=== PATIENT | male | born 1945 | race Caucasian/White ===

== ENCOUNTER 2017-09-06 15:42 | Inpatient (IN) ==
[2017-09-06] MEDS ORDERED: NITROGLYCERIN 2% OINT 1 INCH/GM PACK TOP STA (16:15)
[2017-09-06] MEDS ORDERED: ASPIRIN 325 MG TABLET PO STA (16:15)
[2017-09-06] MEDS ORDERED: ASPIRIN EC 325 MG TABLET PO ONE (16:46)
[2017-09-06] MEDS ORDERED: NITROGLYCERIN 2% OINT 1 INCH/GM PACK TOP ONE (16:46)
[2017-09-06] MEDS ORDERED: ASPIRIN 325 MG TABLET ONE (16:53)
[2017-09-06 16:58] LABS: Basophils % 0.3 % (0.0-0.8); Eosinophils % 0.4 % (0.00-10.9); Hematocrit 40.8 VOL% (42.0-52.0); Hemoglobin 14.7 GM/DL (14.0-18.0); Immature Granulocytes % 0.3 %; Immature Granulocytes Absolute 0.02 #; Lymphocytes % 14.9 % (21.2-54.2); Mean Corpuscular Hemoglobin 31 PG (27-34); Mean Platelet Volume 10.7 FL (9.6-12.0); Monocytes # 0.6 10*3/uL (0.11-0.8); Monocytes % 8.2 % (1.7-12.7); Neutrophils # 5.1 10*3/uL (1.4-7.4); Neutrophils % 75.9 % (38.7-73.9); Platelet Count 192 T/CUMM (130-400); Red Blood Count 4.69 MC/CUMM (3.8-5.5); Red Cell Distribution Width 12.3 % (9.3-17.3); White Blood Count 6.7 T/CUMM (4-12)
[2017-09-06 17:06] LABS: PT Patient Result 10.6 SECS; Partial Thromboplastin Time 25.4 SECS (0-40)
[2017-09-06 17:34] LABS: Alanine Aminotransferase 20 U/L (16-61); Albumin 4.3 G/DL (3.4-5.0); Alkaline Phosphatase 58 U/L (45-117); Aspartate Amino Transferase 16 U/L (0-37); Blood Urea Nitrogen 16 MG/DL (7-18); Calcium 9.3 MG/DL (8.5-10.1); Glucose 97 MG/DL (74-106); Osmolality,Calculated 279.4 MOS/KG (273-304); Potassium 3.8 MMOL/L (3.5-5.1); Sodium 140 MMOL/L (136-145); Total Protein 7.4 G/DL (6.4-8.3); Troponin I Only 0.135 NG/ML (0.00-0.045)
[2017-09-06] MEDS ORDERED: ONDANSETRON 4 MG/2 ML VIAL IV PRN (20:25)
[2017-09-06] MEDS ORDERED: hydrALAZINE 20 MG/1 ML VIAL IV PRN (20:25)
[2017-09-06] MEDS: ENOXAPARIN 80 MG/0.8 ML SYRINGE SUBCUT SCH (21:28)
[2017-09-06] MEDS: SODIUM CHLORIDE 0.9% 1,000 ML IV SCH (21:28)
[2017-09-06 22:35] LABS: Troponin I Only 0.135 NG/ML (0.00-0.045)
[2017-09-07] MEDS: NITROGLYCERIN 2% OINT 1 INCH/GM PACK TOP SCH ×3 (00:26→15:18)
[2017-09-07 05:58] LABS: Troponin I Only 0.158 NG/ML (0.00-0.045)
[2017-09-07] MEDS ORDERED: POTASSIUM CHLORIDE RIDER 10 MEQ in PREMIX 1 EACH IV PRN (08:07)
[2017-09-07] MEDS ORDERED: MAGNESIUM SULF RIDER 2 GM in PREMIX 1 EACH IV PRN (08:07)
[2017-09-07] MEDS ORDERED: diphenhydrAMINE CAP 25 MG CAPSULE PO ONE (08:24)
[2017-09-07] MEDS ORDERED: DIAZEPAM 5 MG TABLET PO ONE (08:24)
[2017-09-07] MEDS: cloNIDine 0.1 MG TABLET PO SCH ×3 (10:21→20:41)
[2017-09-07] MEDS: DOXAZOSIN 1 MG TABLET PO SCH (10:21)
[2017-09-07] MEDS: ASPIRIN EC 81 MG TABLET PO SCH (10:21)
[2017-09-07] MEDS: ENOXAPARIN 80 MG/0.8 ML SYRINGE SUBCUT SCH (10:22)
[2017-09-07] MEDS: TICAGRELOR 90 MG TABLET PO SCH ×2 (10:22→20:41)
[2017-09-07] MEDS: DEXTROSE 5% NACL 0.45% 1,000 ML IV SCH (10:44)
[2017-09-07] MEDS ORDERED: LIDOCAINE 2%/EPI 20 ML VIAL ONE (13:39)
[2017-09-07] MEDS ORDERED: HEPARIN/NACL 0.9% 2 UNITS/ML 2,000 ML IV ONE (13:39)
[2017-09-07] MEDS ORDERED: fentaNYL 100 MCG/2 ML VIAL ONE (14:10)
[2017-09-07] MEDS ORDERED: MIDAZOLAM 2 MG/2 ML VIAL ONE (14:10)
[2017-09-07] MEDS ORDERED: TIROFIBAN 5,000 MCG/100 ML PREMIX IV ONE (14:40)
[2017-09-07] MEDS ORDERED: HEPARIN 5,000 UNIT/1 ML VIAL ONE ×2 (14:46→15:05)
[2017-09-07] MEDS ORDERED: TICAGRELOR 90 MG TABLET ONE (15:00)
[2017-09-07] MEDS: SODIUM CHLORIDE 0.9% 1,000 ML IV SCH (15:19)
[2017-09-07] MEDS ORDERED: TIROFIBAN 5,000 MCG/100 ML PREMIX IV SCH (15:30)
[2017-09-07] MEDS ORDERED: cloNIDine 0.1 MG TABLET PO PRN (15:42)
[2017-09-07] MEDS: HYDROmorphone 2 MG/1 ML VIAL IV PRN ×2 (17:08→21:18)
[2017-09-07] MEDS ORDERED: AMITRIPTYLINE 10 MG TABLET PO SCH (21:00)
[2017-09-08] MEDS: DEXTROSE 5% NACL 0.45% 1,000 ML IV SCH (01:33)
[2017-09-08 08:05] LABS: Basophils % 0.2 % (0.0-0.8); Eosinophils # 0.1 10*3/uL (0.0-0.87); Eosinophils % 0.6 % (0.00-10.9); Hematocrit 40.4 VOL% (42.0-52.0); Immature Granulocytes % 0.4 %; Immature Granulocytes Absolute 0.04 #; Lymphocytes # 1.2 10*3/uL (1.4-4.0); Lymphocytes % 12.1 % (21.2-54.2); Mean Corpuscular HGB Conc 34.7 GM/DL (32-36); Mean Corpuscular Hemoglobin 31 PG (27-34); Mean Platelet Volume 10.7 FL (9.6-12.0); Monocytes % 10.1 % (1.7-12.7); Neutrophils # 7.8 10*3/uL (1.4-7.4); Neutrophils % 76.6 % (38.7-73.9); Platelet Count 174 T/CUMM (130-400); Red Blood Count 4.54 MC/CUMM (3.8-5.5); Red Cell Distribution Width 12.3 % (9.3-17.3); White Blood Count 10.1 T/CUMM (4-12)
[2017-09-08] MEDS: TICAGRELOR 90 MG TABLET PO SCH (08:08)
[2017-09-08] MEDS: ASPIRIN EC 81 MG TABLET PO SCH (08:08)
[2017-09-08] MEDS: DOXAZOSIN 1 MG TABLET PO SCH (08:08)
[2017-09-08] MEDS: cloNIDine 0.1 MG TABLET PO SCH (08:08)
[2017-09-08 08:35] LABS: Calcium 8.6 MG/DL (8.5-10.1); Osmolality,Calculated 275.5 MOS/KG (273-304); Potassium 3.7 MMOL/L (3.5-5.1)
[2017-09-08 12:18] VITALS: BP 197/93
== END 2017-09-08 12:30 | disposition home or self-care (01) | DRG 247 ==
LOC: N.ED 15:42 → N.EDINP 18:52 → N.TELES 19:56
PROVIDERS: ADMIT Internal Medicine Cardiovascular Disease; ATTEND Internal Medicine Cardiovascular Disease
PROC: CLCCHCL (ICD-10-PCS; 2017-09-07 15:15)

== ENCOUNTER 2021-12-12 16:11 | Inpatient (IN) ==
[2021-12-12] MEDS ORDERED: LACTULOSE 20 GM/30 ML UDCUP PO PRN (16:42)
[2021-12-12] MEDS ORDERED: MORPHINE 2 MG/1 ML SYRINGE IV PRN (16:42)
[2021-12-12] MEDS ORDERED: ONDANSETRON 4 MG/2 ML VIAL IV PRN (16:42)
[2021-12-12] MEDS ORDERED: CALCIUM CARBONATE CHEW 500 MG TABLET PO PRN (16:42)
[2021-12-12] MEDS ORDERED: SIMETHICONE CHEW 125 MG TABLET PO PRN (16:42)
[2021-12-12] MEDS ORDERED: ACETAMINOPHEN 325 MG TABLET PO PRN (16:42)
[2021-12-12] MEDS ORDERED: ALUMINUM/MAGNES/SIMETH MAX STR 30 ML UDCUP PO PRN (16:42)
[2021-12-12] MEDS ORDERED: BISACODYL 5 MG TABLET PO PRN (16:42)
[2021-12-12] MEDS ORDERED: ZALEPLON 5 MG CAPSULE PO PRN (16:42)
[2021-12-12] MEDS ORDERED: hydrALAZINE 20 MG/1 ML VIAL IV PRN (16:42)
[2021-12-12] MEDS ORDERED: ENOXAPARIN 40 MG/0.4 ML SYRINGE SUBCUT SCH (17:00)
[2021-12-12 17:55] LABS: Basophils % 0.5 % (0.0-0.8); Eosinophils # 0.1 10*3/uL (0.0-0.87); Eosinophils % 1.5 % (0.00-10.9); Hematocrit 44.5 VOL% (42.0-52.0); Hemoglobin 15.2 GM/DL (14.0-18.0); Immature Granulocytes % 0.1 %; Immature Granulocytes Absolute 0.01 #; Lymphocytes # 1.5 10*3/uL (1.4-4.0); Lymphocytes % 19.5 % (21.2-54.2); Mean Corpuscular HGB Conc 34.2 GM/DL (32-36); Mean Corpuscular Volume 90.4 FL (87-102); Monocytes # 0.9 10*3/uL (0.11-0.8); Monocytes % 12.6 % (1.7-12.7); Neutrophils % 65.8 % (38.7-73.9); Platelet Count 207 T/CUMM (130-400); Red Blood Count 4.92 MC/CUMM (3.8-5.5); Red Cell Distribution Width 12.4 % (9.3-17.3); White Blood Count 7.5 T/CUMM (4-12)
[2021-12-12] MEDS ORDERED: ENOXAPARIN 80 MG/0.8 ML SYRINGE SUBCUT ONE (18:00)
[2021-12-12 18:24] LABS: Albumin 4.2 G/DL (3.4-5.0); Bilirubin,Total 0.5 MG/DL (0.20-1.00); Calcium 9.6 MG/DL (8.5-10.1); Osmolality,Calculated 278.5 MOS/KG (273-304); Potassium 4.3 MMOL/L (3.5-5.1); Total Protein 7.6 G/DL (6.4-8.2)
[2021-12-12] MEDS: QUEtiapine 25 MG TABLET PO SCH (21:10)
[2021-12-13 05:23] LABS: Basophils % 0.4 % (0.0-0.8); Eosinophils # 0.2 10*3/uL (0.0-0.87); Eosinophils % 2.5 % (0.00-10.9); Hematocrit 40.8 VOL% (42.0-52.0); Hemoglobin 13.9 GM/DL (14.0-18.0); Immature Granulocytes % 0.1 %; Immature Granulocytes Absolute 0.01 #; Lymphocytes # 1.8 10*3/uL (1.4-4.0); Lymphocytes % 23.7 % (21.2-54.2); Mean Corpuscular HGB Conc 34.1 GM/DL (32-36); Mean Corpuscular Volume 90.7 FL (87-102); Mean Platelet Volume 10.6 FL (9.6-12.0); Monocytes # 0.8 10*3/uL (0.11-0.8); Monocytes % 11.2 % (1.7-12.7); Neutrophils % 62.1 % (38.7-73.9); Platelet Count 166 T/CUMM (130-400); Red Cell Distribution Width 12.2 % (9.3-17.3); White Blood Count 7.5 T/CUMM (4-12)
[2021-12-13 05:52] LABS: Calcium 8.7 MG/DL (8.5-10.1); Osmolality,Calculated 279.4 MOS/KG (273-304); Potassium 3.8 MMOL/L (3.5-5.1); Risk Ratio 5.22; Thyroid Stimulating Hormone 3.46 uIU/ml (0.358-3.74); VLDL Cholesterol 23.6 MG/DL
[2021-12-13] MEDS ORDERED: SODIUM CHLORIDE 0.9% 1,000 ML IV SCH (06:00)
[2021-12-13] MEDS ORDERED: HEPARIN/NACL 0.9% 2 UNITS/ML 2,000 UNIT/1,000 ML BAG IV ONE (06:50)
[2021-12-13] MEDS ORDERED: diphenhydrAMINE CAP 25 MG CAPSULE PO ONE (07:00)
[2021-12-13] MEDS ORDERED: DIAZEPAM 5 MG TABLET PO ONE (07:00)
[2021-12-13] MEDS ORDERED: ASPIRIN EC 81 MG TABLET PO SCH (09:00)
[2021-12-13] MEDS ORDERED: fentaNYL 100 MCG/2 ML VIAL ONE (10:00)
[2021-12-13] MEDS ORDERED: MIDAZOLAM 2 MG/2 ML VIAL ONE ×2 (10:00→10:14)
[2021-12-13] MEDS ORDERED: hydrALAZINE 20 MG/1 ML VIAL ONE (10:16)
[2021-12-13] MEDS ORDERED: NITROGLYCERIN SL 0.4 MG TABLET SL PRN (11:03)
[2021-12-13] MEDS ORDERED: ASPIRIN EC 325 MG TABLET PO ONE (11:06)
[2021-12-13] MEDS: cloNIDine 0.1 MG TABLET PO SCH (12:26)
[2021-12-13] MEDS: GABAPENTIN 300 MG CAPSULE PO SCH (12:26)
[2021-12-13] MEDS: PANTOPRAZOLE 40 MG TABLET PO SCH (12:28)
[2021-12-13] MEDS: CHOLECALCIFEROL 5,000 UNIT TABLET PO SCH (12:29)
[2021-12-13] MEDS: hydrALAZINE 25 MG TABLET PO SCH ×2 (14:22→21:29)
[2021-12-13 16:28] LABS: Basophils % 0.3 % (0.0-0.8); Eosinophils # 0.1 10*3/uL (0.0-0.87); Eosinophils % 0.4 % (0.00-10.9); Hemoglobin 16.2 GM/DL (14.0-18.0); Immature Granulocytes % 0.4 %; Immature Granulocytes Absolute 0.05 #; Lymphocytes # 1.1 10*3/uL (1.4-4.0); Lymphocytes % 7.9 % (21.2-54.2); Mean Corpuscular HGB Conc 34.5 GM/DL (32-36); Mean Corpuscular Volume 89.7 FL (87-102); Mean Platelet Volume 10.6 FL (9.6-12.0); Monocytes # 1.2 10*3/uL (0.11-0.8); Monocytes % 9.1 % (1.7-12.7); Neutrophils % 81.9 % (38.7-73.9); Platelet Count 208 T/CUMM (130-400); Red Blood Count 5.24 MC/CUMM (3.8-5.5); Red Cell Distribution Width 12.4 % (9.3-17.3); White Blood Count 13.2 T/CUMM (4-12)
[2021-12-13] MEDS: QUEtiapine 25 MG TABLET PO SCH (21:29)
[2021-12-14 05:36] LABS: Basophils % 0.5 % (0.0-0.8); Eosinophils # 0.1 10*3/uL (0.0-0.87); Eosinophils % 1.6 % (0.00-10.9); Hematocrit 43.5 VOL% (42.0-52.0); Hemoglobin 14.5 GM/DL (14.0-18.0); Immature Granulocytes % 0.5 %; Immature Granulocytes Absolute 0.04 #; Lymphocytes # 1.3 10*3/uL (1.4-4.0); Lymphocytes % 15.1 % (21.2-54.2); Mean Corpuscular HGB Conc 33.3 GM/DL (32-36); Mean Corpuscular Volume 91.8 FL (87-102); Mean Platelet Volume 10.4 FL (9.6-12.0); Monocytes # 0.9 10*3/uL (0.11-0.8); Monocytes % 10.4 % (1.7-12.7); Neutrophils % 71.9 % (38.7-73.9); Platelet Count 187 T/CUMM (130-400); Red Blood Count 4.74 MC/CUMM (3.8-5.5); Red Cell Distribution Width 12.5 % (9.3-17.3); White Blood Count 8.8 T/CUMM (4-12)
[2021-12-14 05:51] LABS: Calcium 8.7 MG/DL (8.5-10.1); Osmolality,Calculated 278.5 MOS/KG (273-304); Potassium 3.8 MMOL/L (3.5-5.1)
[2021-12-14 08:10] VITALS: BP 158/77
[2021-12-14] MEDS ORDERED: ASPIRIN 325 MG TABLET PO SCH (09:00)
[2021-12-14] MEDS: GABAPENTIN 300 MG CAPSULE PO SCH (09:13)
[2021-12-14] MEDS: hydrALAZINE 25 MG TABLET PO SCH (09:14)
[2021-12-14] MEDS: cloNIDine 0.1 MG TABLET PO SCH (09:14)
[2021-12-14] MEDS: PANTOPRAZOLE 40 MG TABLET PO SCH (09:14)
[2021-12-14] MEDS: CHOLECALCIFEROL 5,000 UNIT TABLET PO SCH (09:14)
[2021-12-14] MEDS ORDERED: ISOSORBIDE MONONITRATE 30 MG TABLET PO SCH (11:00)
== END 2021-12-14 13:51 | disposition home or self-care (01) | DRG 282 ==
LOC: INTOOBSV 17:35 → N.TELEN 17:35
PROVIDERS: ADMIT Internal Medicine Cardiovascular Disease; ATTEND Internal Medicine Cardiovascular Disease

== ENCOUNTER 2021-12-21 13:00 | Inpatient (IN) ==
[2021-12-21] MEDS ORDERED: NITROGLYCERIN SL 0.4 MG TABLET SL PRN (13:55)
[2021-12-21] MEDS ORDERED: GLUCAGON 1 MG VIAL IM PRN (13:55)
[2021-12-21] MEDS ORDERED: MORPHINE 2 MG/1 ML SYRINGE IV PRN (13:55)
[2021-12-21] MEDS ORDERED: CLORAZEPATE 3.75 MG TABLET PO PRN (13:55)
[2021-12-21] MEDS ORDERED: DEXTROSE 10% 250 ML BAG IV PRN (16:17)
[2021-12-21 16:41] LABS: Basophils # 0.1 10*3/uL (0.0-0.2); Basophils % 0.7 % (0.0-0.8); Eosinophils # 0.1 10*3/uL (0.0-0.87); Eosinophils % 1.8 % (0.00-10.9); Hematocrit 45.1 VOL% (42.0-52.0); Hemoglobin 15.5 GM/DL (14.0-18.0); Immature Granulocytes % 0.3 %; Immature Granulocytes Absolute 0.02 #; Lymphocytes # 1.5 10*3/uL (1.4-4.0); Lymphocytes % 21.1 % (21.2-54.2); Mean Corpuscular HGB Conc 34.4 GM/DL (32-36); Mean Corpuscular Volume 89.8 FL (87-102); Mean Platelet Volume 9.8 FL (9.6-12.0); Monocytes # 0.7 10*3/uL (0.11-0.8); Monocytes % 9.6 % (1.7-12.7); Neutrophils % 66.5 % (38.7-73.9); Platelet Count 260 T/CUMM (130-400); Red Blood Count 5.02 MC/CUMM (3.8-5.5); Red Cell Distribution Width 12.1 % (9.3-17.3); White Blood Count 7.2 T/CUMM (4-12)
[2021-12-21 16:58] LABS: Albumin 4.3 G/DL (3.4-5.0); Bilirubin,Total 0.4 MG/DL (0.20-1.00); Calcium 9.1 MG/DL (8.5-10.1); Osmolality,Calculated 278.5 MOS/KG (273-304); Potassium 4.1 MMOL/L (3.5-5.1); Total Protein 7.9 G/DL (6.4-8.2)
[2021-12-21] MEDS: SODIUM CHLORIDE 0.9% 1,000 ML IV SCH (17:15)
[2021-12-21] MEDS: CHLORHEXIDINE 4% SOLN 118 ML BOTTLE TOP SCH ×2 (17:15→21:00)
[2021-12-21 17:43] LABS: Arterial Base Excess iSTAT 1 MMOL/L (-2.5-2.5); Arterial Bicarbonate iSTAT 25.7 MMOL/L (20-26); Arterial O2 Saturation iSTAT 97 % (95-100); Arterial PCO2 iSTAT 40 MM HG (35-48); Arterial PO2 iSTAT 88 MM HG (80-95); Arterial Total CO2 iSTAT 27 MMO/L (23-27); Arterial pH iSTAT 7.416 (7.35-7.45)
[2021-12-21] MEDS: CHLORHEXIDINE 0.12% ORAL RINSE 60 ML BOTTLE SWISH/SPIT SCH (21:00)
[2021-12-22] MEDS ORDERED: VANCOMYCIN 1,000 MG VIAL ONE (04:17)
[2021-12-22] MEDS ORDERED: PAPAVERINE 60 MG/2 ML VIAL ONE (04:17)
[2021-12-22] MEDS ORDERED: VANCOMYCIN 500 MG VIAL ONE (04:17)
[2021-12-22] MEDS ORDERED: CEFUROXIME INJ 1,500 MG in SODIUM CHLORIDE 0.9% 100 ML IV ONE (05:00)
[2021-12-22] MEDS: CHLORHEXIDINE 4% SOLN 118 ML BOTTLE TOP SCH (05:15)
[2021-12-22] MEDS: SODIUM CHLORIDE 0.9% 1,000 ML IV SCH (05:25)
[2021-12-22] MEDS ORDERED: DIAZEPAM 5 MG TABLET PO ONE (05:30)
[2021-12-22] MEDS ORDERED: FAMOTIDINE 20 MG TABLET PO ONE (05:30)
[2021-12-22] MEDS ORDERED: MIDAZOLAM 10 MG/2 ML VIAL ONE ×4 (06:02→08:49)
[2021-12-22] MEDS ORDERED: SUFentanil 250 MCG/5 ML AMP ONE ×2 (06:02)
[2021-12-22] MEDS ORDERED: AMINOCAPROIC ACID 5,000 MG/20 ML VIAL ONE (06:03)
[2021-12-22] MEDS ORDERED: SEVOFLURANE 1 UNIT/15 MINUTE INH ONE ×2 (06:19→10:36)
[2021-12-22] MEDS ORDERED: MINERAL OIL/PETROLATUM OPH OINT 3.5 GM TUBE ONE ×2 (06:20→10:36)
[2021-12-22] MEDS ORDERED: NITROGLYCERIN DRIP 50 MG/250 ML BOTTLE IV ONE ×2 (06:25→14:29)
[2021-12-22] MEDS ORDERED: HEPARIN/NACL 0.9% 2 UNITS/ML 1,000 UNIT/500 ML BAG IV ONE (06:25)
[2021-12-22] MEDS ORDERED: PHENYLEPHRINE DRIP 20 MG/250 ML PREMIX IV ONE (06:25)
[2021-12-22] MEDS ORDERED: SODIUM BICARBONATE 50 MEQ/50 ML VIAL IV ONE ×2 (07:29→11:24)
[2021-12-22] MEDS ORDERED: CALCIUM CHLORIDE 1,000 MG/10 ML SYRINGE IV ONE (07:30)
[2021-12-22] MEDS ORDERED: POTASSIUM CHLORIDE RIDER 20 MEQ/100 ML PREMIX IV ONE (07:30)
[2021-12-22] MEDS ORDERED: NITROPRUSSIDE 50 MG/2 ML VIAL ONE (07:30)
[2021-12-22] MEDS ORDERED: PHENYLEPHRINE DRIP 40 MG/250 ML PREMIX IV ONE (07:30)
[2021-12-22 07:46] LABS: ABG Base Excess 1.3 MMOL/L (-2.5-2.5); ABG HCO3 25.6 MMOL/L (20-26); ABG PCO2 32.6 MM HG (35-48); ABG PH 7.478 (7.35-7.45); ABG TCO2 21.1 MMOL/L (23-27); Glucose Heart Surgery 106 MG/DL (74-106); Hematocrit Heart Surgery 38.6 PERCENT (42-52); Hemoglobin Heart Surgery 12.5 G/DL (14.0-18.0); Ionized Calcium Arterial 1.06 MMOL/L (1.21-1.46); PCO2 Patient Temp Arterial 31.1 MMHG; PH Patient Temp Arterial 7.493; Patient Temperature 36 CELCIUS; Potassium Heart/CVR 3.8 MMOL/L (3.5-5.1); Sodium Heart/CVR 138 MMOL/L (135-145)
[2021-12-22 08:32] LABS: Mucus,Urine Occasional /LPF (Occasional); RBC,Urine 1 /HPF (0-4)
[2021-12-22 08:33] LABS: Bilirubin,Urine Negative (Negative); Blood, Urine Negative (Negative); Glucose,Urine (UA) Negative (Negative); Ketones,Urine Negative (Negative); Nitrite,Urine Negative (Negative); Protein,Urine Negative (Negative); Urine Appearance Clear (Clear); Urine Color Yellow (Yellow); Urine Specific Gravity 1.025 (1.001-1.035)
[2021-12-22 09:23] LABS: PCO2 Patient Temp Venous 36.6 MM HG; PH Patient Temp Venous 7.447; PO2 Patient Temp Venous 49.7 MM HG; Potassium Heart/CVR 4.4 MMOL/L (3.5-5.1); VBG Base Excess 1.5 MEQ/L (0-4); VBG HCO3 25.6 MEQ/L (24-28); VBG PCO2 40.4 MMHG (41-51); VBG PH 7.418; VBG PO2 56.9 MMHG (17-40)
[2021-12-22 09:54] LABS: Hematocrit Heart Surgery 30.1 PERCENT (42-52); Hemoglobin Heart Surgery 9.7 G/DL (14.0-18.0); PCO2 Patient Temp Venous 34.9 MM HG; PH Patient Temp Venous 7.466; PO2 Patient Temp Venous 44.4 MM HG; Potassium Heart/CVR 4.6 MMOL/L (3.5-5.1); VBG Base Excess 1.7 MEQ/L (0-4); VBG HCO3 25.8 MEQ/L (24-28); VBG Oxygen Saturation 88.6 %; VBG PCO2 40.3 MMHG (41-51); VBG PH 7.421; VBG PO2 54.5 MMHG (17-40); VBG Total CO2 23.9 MMOL/L
[2021-12-22] MEDS ORDERED: THROMBIN TOPICAL (RECOMBINANT) 5,000 UNIT VIAL TOP ONE (10:16)
[2021-12-22] MEDS ORDERED: CALCIUM CHLORIDE 1,000 MG/10 ML VIAL IV ONE (10:25)
[2021-12-22] MEDS ORDERED: SODIUM CHLORIDE 0.9% 1,000 ML IV ONE (10:35)
[2021-12-22] MEDS ORDERED: LACTATED RINGERS 1,000 ML IV ONE (10:35)
[2021-12-22] MEDS ORDERED: SODIUM CHLORIDE 0.9% 200 ML IV ONE (10:35)
[2021-12-22] MEDS ORDERED: SODIUM CHLORIDE 0.9% 250 ML IV ONE (10:35)
[2021-12-22 10:46] LABS: ABG Base Excess -0.9 MMOL/L (-2.5-2.5); ABG HCO3 23.7 MMOL/L (20-26); ABG Oxygen Saturation 99.9 % (95-100); ABG PCO2 43.1 MM HG (35-48); ABG PH 7.364 (7.35-7.45); ABG TCO2 22.3 MMOL/L (23-27); Glucose Heart Surgery 205 MG/DL (74-106); Hematocrit Heart Surgery 31.9 PERCENT (42-52); Hemoglobin Heart Surgery 10.3 G/DL (14.0-18.0); Ionized Calcium Arterial 1.29 MMOL/L (1.21-1.46); PCO2 Patient Temp Arterial 43.1 MMHG; PH Patient Temp Arterial 7.364; Patient Temperature 37 CELCIUS; Potassium Heart/CVR 3.8 MMOL/L (3.5-5.1); Sodium Heart/CVR 137 MMOL/L (135-145)
[2021-12-22] MEDS ORDERED: MAGNESIUM SULF RIDER 4 GM/100 ML PREMIX IV PRN (10:59)
[2021-12-22] MEDS ORDERED: PHENYLEPHRINE DRIP 40 MG/250 ML PREMIX IV PRN (10:59)
[2021-12-22] MEDS ORDERED: INSULIN REGULAR 100 UNIT/ML IV ONE (10:59)
[2021-12-22] MEDS ORDERED: MORPHINE 10 MG/1 ML VIAL IV PRN (10:59)
[2021-12-22] MEDS ORDERED: VECURONIUM 10 MG VIAL IV PRN ×2 (10:59)
[2021-12-22] MEDS ORDERED: MIDAZOLAM 2 MG/2 ML VIAL IV PRN (10:59)
[2021-12-22] MEDS ORDERED: ACETAMINOPHEN 650 MG SUPP RECTAL PRN (10:59)
[2021-12-22] MEDS ORDERED: MAGNESIUM SULF RIDER 2 GM/50 ML PREMIX IV PRN (10:59)
[2021-12-22] MEDS ORDERED: POTASSIUM CHLORIDE RIDER 10 MEQ/100 ML PREMIX IV PRN (10:59)
[2021-12-22] MEDS ORDERED: CALCIUM CHLORIDE 1,000 MG/10 ML SYRINGE IV PRN (10:59)
[2021-12-22] MEDS ORDERED: INSULIN REGULAR 100 UNIT/ML IV PRN (10:59)
[2021-12-22] MEDS ORDERED: CHLORHEXIDINE 4% SOLN 118 ML BOTTLE TOP PRN (10:59)
[2021-12-22] MEDS ORDERED: MIDAZOLAM 10 MG/2 ML VIAL IV PRN (10:59)
[2021-12-22] MEDS ORDERED: NITROPRUSSIDE 100 MG in DEXTROSE 5% 250 ML IV PRN (10:59)
[2021-12-22] MEDS ORDERED: ONDANSETRON 4 MG/2 ML VIAL IV PRN (10:59)
[2021-12-22] MEDS ORDERED: SODIUM CHLORIDE 0.45% 1,000 ML IV SCH ×2 (11:00)
[2021-12-22] MEDS ORDERED: INSULIN REGULAR DRIP 100 ML IV SCH (11:00)
[2021-12-22] MEDS ORDERED: DEXTROSE 10% 250 ML BAG IV PRN ×2 (11:17→11:18)
[2021-12-22] MEDS ORDERED: MAGNESIUM SULFATE 5 GM/10 ML VIAL IV ONE (11:21)
[2021-12-22] MEDS ORDERED: LIDOCAINE 2% 5 ML VIAL ONE (11:21)
[2021-12-22] MEDS ORDERED: ALBUMIN 25% 25 GM/100 ML VIAL IV ONE (11:21)
[2021-12-22] MEDS ORDERED: HEPARIN 10,000 UNIT/10 ML VIAL ONE (11:22)
[2021-12-22] MEDS ORDERED: methylPREDNISolone SOD SUC 1,000 MG/8 ML VIAL ONE (11:22)
[2021-12-22] MEDS ORDERED: PROTAMINE SULFATE 250 MG/25 ML VIAL IV ONE (11:22)
[2021-12-22] MEDS ORDERED: DEXTROSE 5% KCL 20 MEQ 20 MEQ/1,000 ML BAG IV ONE (11:22)
[2021-12-22] MEDS ORDERED: FUROSEMIDE 20 MG/2 ML VIAL ONE (11:24)
[2021-12-22] MEDS ORDERED: MANNITOL 12.5 GM/50 ML VIAL IV ONE (11:24)
[2021-12-22] MEDS: LACTATED RINGERS 250 ML IV PRN ×9 (11:53→22:26)
[2021-12-22 11:54] LABS: ABG Base Excess 0.1 MMOL/L (-2.5-2.5); ABG HCO3 24.6 MMOL/L (20-26); ABG Oxygen Saturation 99.6 % (95-100); ABG PCO2 39.5 MM HG (35-48); ABG PH 7.405 (7.35-7.45); ABG TCO2 21.9 MMOL/L (23-27); Glucose Heart Surgery 163 MG/DL (74-106); Hematocrit Heart Surgery 36.9 PERCENT (42-52); Potassium Heart/CVR 3.7 MMOL/L (3.5-5.1)
[2021-12-22 11:58] LABS: Basophils % 0.2 % (0.0-0.8); Eosinophils # 0.1 10*3/uL (0.0-0.87); Eosinophils % 0.8 % (0.00-10.9); Hematocrit 34.1 VOL% (42.0-52.0); Hemoglobin 11.8 GM/DL (14.0-18.0); Immature Granulocytes % 0.5 %; Immature Granulocytes Absolute 0.06 #; Lymphocytes # 0.8 10*3/uL (1.4-4.0); Lymphocytes % 6.2 % (21.2-54.2); Mean Corpuscular HGB Conc 34.6 GM/DL (32-36); Mean Corpuscular Volume 90.5 FL (87-102); Mean Platelet Volume 10.1 FL (9.6-12.0); Monocytes # 0.6 10*3/uL (0.11-0.8); Monocytes % 4.7 % (1.7-12.7); Neutrophils % 87.6 % (38.7-73.9); Platelet Count 181 T/CUMM (130-400); Red Blood Count 3.77 MC/CUMM (3.8-5.5); White Blood Count 12.4 T/CUMM (4-12)
[2021-12-22] MEDS: POTASSIUM CHLORIDE RIDER 20 MEQ/100 ML PREMIX IV PRN ×2 (12:04→12:49)
[2021-12-22 12:12] LABS: INR 1.1; PT Patient Result 11.9 SECS (10.5-12.0); Partial Thromboplastin Time 30.8 SECS (23.8-32.1)
[2021-12-22 12:20] LABS: CKMB % 7.25 %
[2021-12-22 12:29] LABS: Albumin 3.2 G/DL (3.4-5.0); Bilirubin,Total 0.9 MG/DL (0.20-1.00); Calcium 8.8 MG/DL (8.5-10.1); Osmolality,Calculated 284.3 MOS/KG (273-304); Potassium 3.7 MMOL/L (3.5-5.1); Total Protein 5.6 G/DL (6.4-8.2)
[2021-12-22 12:30] LABS: High Sensitive Troponin I* 3927.7 ng/L (0-78)
[2021-12-22] MEDS: CHLORHEXIDINE 0.12% ORAL RINSE 60 ML BOTTLE SWISH/SPIT SCH ×2 (12:49→21:00)
[2021-12-22] MEDS: ALBUMIN 5% 12.5 GM/250 ML VIAL IV PRN ×2 (13:51→22:45)
[2021-12-22 13:52] LABS: ABG Base Excess -0.5 MMOL/L (-2.5-2.5); ABG Oxygen Saturation 99.4 % (95-100); ABG PCO2 37.7 MM HG (35-48); ABG PH 7.408 (7.35-7.45); ABG TCO2 21.1 MMOL/L (23-27); Glucose Heart Surgery 148 MG/DL (74-106); Hematocrit Heart Surgery 36.8 PERCENT (42-52); Hemoglobin Heart Surgery 11.9 G/DL (14.0-18.0); Potassium Heart/CVR 4.2 MMOL/L (3.5-5.1)
[2021-12-22] MEDS ORDERED: NITROGLYCERIN DRIP 50 MG/250 ML BOTTLE IV PRN (14:33)
[2021-12-22 15:39] LABS: ABG Base Excess -0.2 MMOL/L (-2.5-2.5); ABG HCO3 24.3 MMOL/L (20-26); ABG Oxygen Saturation 98.4 % (95-100); ABG PCO2 41.5 MM HG (35-48); ABG PH 7.386 (7.35-7.45); Glucose Heart Surgery 168 MG/DL (74-106); Hematocrit Heart Surgery 37.5 PERCENT (42-52); Hemoglobin Heart Surgery 12.2 G/DL (14.0-18.0); Potassium Heart/CVR 4.3 MMOL/L (3.5-5.1)
[2021-12-22] MEDS ORDERED: FUROSEMIDE 40 MG/4 ML VIAL ONE (16:32)
[2021-12-22] MEDS ORDERED: FUROSEMIDE 40 MG/4 ML VIAL IV ONE (16:33)
[2021-12-22] MEDS: CEFUROXIME INJ 1,500 MG in SODIUM CHLORIDE 0.9% 100 ML IV SCH (18:08)
[2021-12-22] MEDS: INSULIN REGULAR 100 UNIT/ML SUBCUT SCH (20:59)
[2021-12-22 21:39] LABS: ABG HCO3 22.7 MMOL/L (20-26); ABG Oxygen Saturation 97.6 % (95-100); ABG PCO2 39.9 MM HG (35-48); ABG PO2 99.4 MM HG (80-95); ABG TCO2 20.4 MMOL/L (23-27); Glucose Heart Surgery 222 MG/DL (74-106); Hematocrit Heart Surgery 37.5 PERCENT (42-52); Hemoglobin Heart Surgery 12.2 G/DL (14.0-18.0)
[2021-12-22 22:00] LABS: CKMB % 5.11 %
[2021-12-22 22:02] LABS: High Sensitive Troponin I* 8286.5 ng/L (0-78)
[2021-12-23 00:32] LABS: ABG Base Excess -5.4 MMOL/L (-2.5-2.5); ABG Oxygen Saturation 96.8 % (95-100); ABG PCO2 39.3 MM HG (35-48); ABG PH 7.322 (7.35-7.45); ABG PO2 93.5 MM HG (80-95); ABG TCO2 18.3 MMOL/L (23-27); Glucose Heart Surgery 220 MG/DL (74-106); Hematocrit Heart Surgery 35.2 PERCENT (42-52); Hemoglobin Heart Surgery 11.4 G/DL (14.0-18.0)
[2021-12-23] MEDS: INSULIN REGULAR 100 UNIT/ML SUBCUT SCH ×7 (01:09→21:06)
[2021-12-23 02:17] LABS: ABG Base Excess -4.9 MMOL/L (-2.5-2.5); ABG HCO3 20.4 MMOL/L (20-26); ABG Oxygen Saturation 96.3 % (95-100); ABG PCO2 39.1 MM HG (35-48); ABG PH 7.331 (7.35-7.45); ABG PO2 88.5 MM HG (80-95); ABG TCO2 18.5 MMOL/L (23-27); Glucose Heart Surgery 230 MG/DL (74-106); Hematocrit Heart Surgery 35.7 PERCENT (42-52); Hemoglobin Heart Surgery 11.6 G/DL (14.0-18.0); Potassium Heart/CVR 3.9 MMOL/L (3.5-5.1)
[2021-12-23 03:51] LABS: ABG HCO3 21.1 MMOL/L (20-26); ABG Oxygen Saturation 97.3 % (95-100); ABG PCO2 39.7 MM HG (35-48); ABG PH 7.341 (7.35-7.45); ABG PO2 97.3 MM HG (80-95); ABG TCO2 19.4 MMOL/L (23-27); Glucose Heart Surgery 218 MG/DL (74-106); Hematocrit Heart Surgery 34.2 PERCENT (42-52); Hemoglobin Heart Surgery 11.1 G/DL (14.0-18.0); Potassium Heart/CVR 3.9 MMOL/L (3.5-5.1)
[2021-12-23 03:54] LABS: Basophils % 0.1 % (0.0-0.8); Hematocrit 32.7 VOL% (42.0-52.0); Immature Granulocytes % 0.5 %; Immature Granulocytes Absolute 0.07 #; Lymphocytes # 0.4 10*3/uL (1.4-4.0); Lymphocytes % 2.9 % (21.2-54.2); Mean Corpuscular HGB Conc 33.6 GM/DL (32-36); Mean Corpuscular Volume 92.4 FL (87-102); Mean Platelet Volume 10.3 FL (9.6-12.0); Monocytes # 0.9 10*3/uL (0.11-0.8); Monocytes % 6.7 % (1.7-12.7); Neutrophils % 89.8 % (38.7-73.9); Platelet Count 199 T/CUMM (130-400); Red Blood Count 3.54 MC/CUMM (3.8-5.5); Red Cell Distribution Width 12.2 % (9.3-17.3); White Blood Count 13.7 T/CUMM (4-12)
[2021-12-23 04:12] LABS: Lymphocytes 5 % (20-55); Total Cells Counted 100
[2021-12-23 04:13] LABS: Platelet Estimate Adequate
[2021-12-23 04:25] LABS: Albumin 3.7 G/DL (3.4-5.0); Bilirubin,Direct 0.15 MG/DL (0.0-0.20); Bilirubin,Total 0.4 MG/DL (0.20-1.00); Calcium 8.7 MG/DL (8.5-10.1); Osmolality,Calculated 289.3 MOS/KG (273-304); Potassium 3.8 MMOL/L (3.5-5.1); Total Protein 6.3 G/DL (6.4-8.2)
[2021-12-23 04:26] LABS: CKMB % 4.94 %; High Sensitive Troponin I* 8379.5 ng/L (0-78)
[2021-12-23] MEDS: CEFUROXIME INJ 1,500 MG in SODIUM CHLORIDE 0.9% 100 ML IV SCH ×2 (06:35→18:28)
[2021-12-23] MEDS ORDERED: oxyCODONE/ACETAMINOPHEN 5-325 MG TABLET PO PRN (07:39)
[2021-12-23] MEDS: ASPIRIN EC 81 MG TABLET PO SCH (08:05)
[2021-12-23] MEDS: PANTOPRAZOLE 40 MG TABLET PO SCH (08:05)
[2021-12-23] MEDS: CHLORHEXIDINE 0.12% ORAL RINSE 60 ML BOTTLE SWISH/SPIT SCH ×3 (08:09→21:07)
[2021-12-23] MEDS: METOPROLOL TARTRATE 25 MG TABLET PO SCH ×2 (08:09→21:02)
[2021-12-23] MEDS ORDERED: MAGNESIUM SULF RIDER 2 GM/50 ML PREMIX IV PRN (08:40)
[2021-12-23] MEDS ORDERED: DEXTROSE 10% 25 GM/250 ML BAG IV PRN (08:40)
[2021-12-23] MEDS ORDERED: MAGNESIUM SULF RIDER 4 GM/100 ML PREMIX IV PRN (08:40)
[2021-12-23] MEDS ORDERED: ALUMINUM/MAGNES/SIMETH MAX STR 30 ML UDCUP PO PRN (08:40)
[2021-12-23] MEDS ORDERED: GLUCAGON 1 MG VIAL IM PRN (08:40)
[2021-12-23] MEDS ORDERED: MAGNESIUM HYDROXIDE SUSP 30 ML UDCUP PO PRN (08:40)
[2021-12-23] MEDS: FERROUS SULFATE 325 MG TABLET PO SCH (09:13)
[2021-12-23] MEDS: hydrALAZINE 25 MG TABLET PO SCH ×2 (09:22→15:01)
[2021-12-23] MEDS: DOCUSATE SODIUM 100 MG CAPSULE PO SCH (09:22)
[2021-12-23] MEDS: CHOLECALCIFEROL 5,000 UNIT TABLET PO SCH (09:22)
[2021-12-23] MEDS: SODIUM CHLOR 0.45% KCL 20 MEQ 20 MEQ/1,000 ML BAG IV SCH (09:22)
[2021-12-23] MEDS ORDERED: MORPHINE 2 MG/1 ML SYRINGE IV ONE (10:09)
[2021-12-23] MEDS: cloNIDine 0.1 MG TABLET PO SCH (10:29)
[2021-12-23] MEDS ORDERED: hydrALAZINE 20 MG/1 ML VIAL IV PRN (11:03)
[2021-12-23 11:36] LABS: CKMB % 3.18 %; High Sensitive Troponin I* 7176.9 ng/L (0-78)
[2021-12-23] MEDS ORDERED: hydrALAZINE 25 MG TABLET PO ONE (16:03)
[2021-12-23] MEDS: ONDANSETRON 4 MG/2 ML VIAL IV PRN (16:29)
[2021-12-23] MEDS: ROSUVASTATIN 20 MG TABLET PO SCH (21:02)
[2021-12-23] MEDS: QUEtiapine 25 MG TABLET PO SCH (21:02)
[2021-12-23] MEDS: ZALEPLON 5 MG CAPSULE PO PRN (21:03)
[2021-12-23] MEDS: GABAPENTIN 300 MG CAPSULE PO SCH (21:06)
[2021-12-23] MEDS: ASCORBIC ACID 500 MG TABLET PO SCH (21:08)
[2021-12-24] MEDS: ACETAMINOPHEN 325 MG TABLET PO PRN ×5 (00:30→21:55)
[2021-12-24] MEDS: INSULIN REGULAR 100 UNIT/ML SUBCUT SCH ×6 (00:35→21:54)
[2021-12-24 05:32] LABS: Basophils % 0.1 % (0.0-0.8); Hematocrit 32.1 VOL% (42.0-52.0); Hemoglobin 10.7 GM/DL (14.0-18.0); Immature Granulocytes % 0.7 %; Immature Granulocytes Absolute 0.16 #; Lymphocytes # 1.1 10*3/uL (1.4-4.0); Lymphocytes % 4.8 % (21.2-54.2); Mean Corpuscular HGB Conc 33.3 GM/DL (32-36); Mean Corpuscular Volume 93.9 FL (87-102); Mean Platelet Volume 10.9 FL (9.6-12.0); Monocytes # 2.3 10*3/uL (0.11-0.8); Monocytes % 9.7 % (1.7-12.7); Neutrophils % 84.7 % (38.7-73.9); Platelet Count 188 T/CUMM (130-400); Red Blood Count 3.42 MC/CUMM (3.8-5.5); Red Cell Distribution Width 12.3 % (9.3-17.3); White Blood Count 23.1 T/CUMM (4-12)
[2021-12-24 05:56] LABS: Lymphocytes 4 % (20-55); Platelet Estimate Normal; Total Cells Counted 100
[2021-12-24] MEDS ORDERED: FUROSEMIDE 40 MG/4 ML VIAL IV ONE (06:00)
[2021-12-24 06:26] LABS: Albumin 3.7 G/DL (3.4-5.0); Bilirubin,Direct 0.18 MG/DL (0.0-0.20); Bilirubin,Indirect 0.3 MG/DL (0.0-1.0); Bilirubin,Total 0.5 MG/DL (0.20-1.00); CKMB % 1.75 %; High Sensitive Troponin I* 5259.6 ng/L (0-78); Total Protein 6.6 G/DL (6.4-8.2)
[2021-12-24 06:51] LABS: Albumin 3.7 G/DL (3.4-5.0); Bilirubin,Direct 0.17 MG/DL (0.0-0.20); Bilirubin,Total 0.5 MG/DL (0.20-1.00); Calcium 8.7 MG/DL (8.5-10.1); Osmolality,Calculated 280.5 MOS/KG (273-304); Potassium 4.1 MMOL/L (3.5-5.1); Total Protein 6.3 G/DL (6.4-8.2)
[2021-12-24] MEDS ORDERED: GABAPENTIN 300 MG CAPSULE PO SCH (09:00)
[2021-12-24] MEDS: SODIUM CHLOR 0.45% KCL 20 MEQ 20 MEQ/1,000 ML BAG IV SCH (09:07)
[2021-12-24] MEDS: CHLORHEXIDINE 0.12% ORAL RINSE 60 ML BOTTLE SWISH/SPIT SCH ×2 (09:19→20:51)
[2021-12-24] MEDS: FERROUS SULFATE 325 MG TABLET PO SCH (09:19)
[2021-12-24] MEDS: PANTOPRAZOLE 40 MG TABLET PO SCH (09:55)
[2021-12-24] MEDS: METOPROLOL TARTRATE 25 MG TABLET PO SCH ×2 (09:55→20:52)
[2021-12-24] MEDS: cloNIDine 0.1 MG TABLET PO SCH (09:55)
[2021-12-24] MEDS: ASCORBIC ACID 500 MG TABLET PO SCH ×2 (09:55→21:07)
[2021-12-24] MEDS: CHOLECALCIFEROL 5,000 UNIT TABLET PO SCH (09:55)
[2021-12-24] MEDS: DOCUSATE SODIUM 100 MG CAPSULE PO SCH (09:55)
[2021-12-24] MEDS: ASPIRIN EC 81 MG TABLET PO SCH (09:55)
[2021-12-24] MEDS: KETOROLAC 30 MG/1 ML VIAL IV SCH ×3 (10:26→20:56)
[2021-12-24] MEDS: ROSUVASTATIN 20 MG TABLET PO SCH (20:51)
[2021-12-24] MEDS: GABAPENTIN 300 MG CAPSULE PO SCH (20:51)
[2021-12-24] MEDS: ZALEPLON 5 MG CAPSULE PO PRN (20:59)
[2021-12-24] MEDS: QUEtiapine 25 MG TABLET PO SCH (21:07)
[2021-12-25] MEDS: ACETAMINOPHEN 325 MG TABLET PO PRN ×3 (01:55→22:14)
[2021-12-25] MEDS: KETOROLAC 30 MG/1 ML VIAL IV SCH ×4 (04:37→20:57)
[2021-12-25 05:20] LABS: Basophils % 0.1 % (0.0-0.8); Eosinophils % 0.3 % (0.00-10.9); Hematocrit 30.7 VOL% (42.0-52.0); Hemoglobin 10.2 GM/DL (14.0-18.0); Immature Granulocytes % 0.5 %; Immature Granulocytes Absolute 0.07 #; Lymphocytes # 1.6 10*3/uL (1.4-4.0); Lymphocytes % 11.4 % (21.2-54.2); Mean Corpuscular HGB Conc 33.2 GM/DL (32-36); Mean Corpuscular Volume 94.2 FL (87-102); Mean Platelet Volume 10.8 FL (9.6-12.0); Monocytes # 1.3 10*3/uL (0.11-0.8); Monocytes % 9.3 % (1.7-12.7); Neutrophils % 78.4 % (38.7-73.9); Platelet Count 176 T/CUMM (130-400); Red Blood Count 3.26 MC/CUMM (3.8-5.5); Red Cell Distribution Width 12.3 % (9.3-17.3); White Blood Count 14.2 T/CUMM (4-12)
[2021-12-25 05:36] LABS: Albumin 3.4 G/DL (3.4-5.0); Bilirubin,Direct 0.18 MG/DL (0.0-0.20); Bilirubin,Total 0.5 MG/DL (0.20-1.00); Calcium 8.9 MG/DL (8.5-10.1); Osmolality,Calculated 284.3 MOS/KG (273-304); Potassium 3.6 MMOL/L (3.5-5.1); Total Protein 6.3 G/DL (6.4-8.2)
[2021-12-25 05:39] LABS: Alanine Aminotransferase 25 U/L (16-61); Albumin 3.3 G/DL (3.4-5.0); Aspartate Amino Transferase 29 U/L (0-37); Bilirubin,Indirect 0.3 MG/DL (0.0-1.0); Total Protein 6.4 G/DL (6.4-8.2)
[2021-12-25 05:41] LABS: Alkaline Phosphatase 44 U/L (45-117)
[2021-12-25] MEDS: CHOLECALCIFEROL 5,000 UNIT TABLET PO SCH (09:35)
[2021-12-25] MEDS: cloNIDine 0.1 MG TABLET PO SCH (09:35)
[2021-12-25] MEDS: DOCUSATE SODIUM 100 MG CAPSULE PO SCH (09:35)
[2021-12-25] MEDS: ASCORBIC ACID 500 MG TABLET PO SCH ×2 (09:35→20:52)
[2021-12-25] MEDS: PANTOPRAZOLE 40 MG TABLET PO SCH (09:35)
[2021-12-25] MEDS: METOPROLOL TARTRATE 25 MG TABLET PO SCH ×2 (09:35→20:52)
[2021-12-25] MEDS: FERROUS SULFATE 325 MG TABLET PO SCH (09:35)
[2021-12-25] MEDS: CHLORHEXIDINE 0.12% ORAL RINSE 60 ML BOTTLE SWISH/SPIT SCH ×2 (09:36→20:52)
[2021-12-25] MEDS: ASPIRIN EC 81 MG TABLET PO SCH (09:36)
[2021-12-25] MEDS: POLYETHYLENE GLYCOL POWDER 17 GM PACK PO SCH (10:18)
[2021-12-25] MEDS: ONDANSETRON 4 MG/2 ML VIAL IV PRN (10:57)
[2021-12-25] MEDS: INSULIN REGULAR 100 UNIT/ML SUBCUT SCH (13:49)
[2021-12-25] MEDS: QUEtiapine 25 MG TABLET PO SCH (20:52)
[2021-12-25] MEDS: ZALEPLON 5 MG CAPSULE PO PRN (20:52)
[2021-12-25] MEDS: GABAPENTIN 300 MG CAPSULE PO SCH (20:52)
[2021-12-25] MEDS: ROSUVASTATIN 20 MG TABLET PO SCH (20:52)
[2021-12-26] MEDS: KETOROLAC 30 MG/1 ML VIAL IV SCH ×4 (03:45→20:38)
[2021-12-26 04:43] LABS: Basophils % 0.1 % (0.0-0.8); Eosinophils # 0.2 10*3/uL (0.0-0.87); Eosinophils % 1.7 % (0.00-10.9); Hemoglobin 10.2 GM/DL (14.0-18.0); Immature Granulocytes % 0.3 %; Immature Granulocytes Absolute 0.03 #; Lymphocytes # 1.9 10*3/uL (1.4-4.0); Lymphocytes % 17.6 % (21.2-54.2); Mean Corpuscular HGB Conc 32.9 GM/DL (32-36); Mean Corpuscular Volume 93.1 FL (87-102); Mean Platelet Volume 10.7 FL (9.6-12.0); Monocytes % 9.3 % (1.7-12.7); Platelet Count 203 T/CUMM (130-400); Red Blood Count 3.33 MC/CUMM (3.8-5.5); Red Cell Distribution Width 12.1 % (9.3-17.3); White Blood Count 10.8 T/CUMM (4-12)
[2021-12-26 04:58] LABS: Albumin 3.2 G/DL (3.4-5.0); Bilirubin,Total 0.6 MG/DL (0.20-1.00); Calcium 8.5 MG/DL (8.5-10.1); Osmolality,Calculated 284.3 MOS/KG (273-304); Total Protein 6.2 G/DL (6.4-8.2)
[2021-12-26] MEDS: POTASSIUM CHLORIDE 20 MEQ TABLET PO PRN ×2 (05:09→06:08)
[2021-12-26] MEDS ORDERED: POTASSIUM CHLORIDE 20 MEQ TABLET PO ONE (07:39)
[2021-12-26] MEDS ORDERED: NITROGLYCERIN SL 0.4 MG TABLET SL PRN (08:57)
[2021-12-26] MEDS: cloNIDine 0.1 MG TABLET PO SCH (09:11)
[2021-12-26] MEDS: ASPIRIN EC 81 MG TABLET PO SCH (09:11)
[2021-12-26] MEDS: ASCORBIC ACID 500 MG TABLET PO SCH ×2 (09:11→20:38)
[2021-12-26] MEDS: FERROUS SULFATE 325 MG TABLET PO SCH (09:11)
[2021-12-26] MEDS: PANTOPRAZOLE 40 MG TABLET PO SCH (09:12)
[2021-12-26] MEDS: CHOLECALCIFEROL 5,000 UNIT TABLET PO SCH (09:12)
[2021-12-26] MEDS: DOCUSATE SODIUM 100 MG CAPSULE PO SCH (09:12)
[2021-12-26] MEDS: POLYETHYLENE GLYCOL POWDER 17 GM PACK PO SCH (09:13)
[2021-12-26] MEDS: CHLORHEXIDINE 0.12% ORAL RINSE 60 ML BOTTLE SWISH/SPIT SCH ×2 (09:16→20:45)
[2021-12-26] MEDS: METOPROLOL TARTRATE 50 MG TABLET PO SCH ×2 (09:20→20:38)
[2021-12-26] MEDS: METOPROLOL TARTRATE 25 MG TABLET PO SCH (10:33)
[2021-12-26] MEDS: GABAPENTIN 300 MG CAPSULE PO SCH (20:38)
[2021-12-26] MEDS: ROSUVASTATIN 20 MG TABLET PO SCH (20:38)
[2021-12-26] MEDS: QUEtiapine 25 MG TABLET PO SCH (20:38)
[2021-12-26] MEDS: ZALEPLON 5 MG CAPSULE PO PRN (20:42)
[2021-12-27] MEDS: KETOROLAC 30 MG/1 ML VIAL IV SCH ×2 (05:17→10:07)
[2021-12-27 05:43] LABS: Basophils % 0.2 % (0.0-0.8); Eosinophils # 0.4 10*3/uL (0.0-0.87); Eosinophils % 4.4 % (0.00-10.9); Hematocrit 34.5 VOL% (42.0-52.0); Hemoglobin 11.6 GM/DL (14.0-18.0); Immature Granulocytes % 0.4 %; Immature Granulocytes Absolute 0.04 #; Lymphocytes # 1.7 10*3/uL (1.4-4.0); Lymphocytes % 17.2 % (21.2-54.2); Mean Corpuscular HGB Conc 33.6 GM/DL (32-36); Mean Corpuscular Volume 91.3 FL (87-102); Mean Platelet Volume 10.4 FL (9.6-12.0); Monocytes # 0.8 10*3/uL (0.11-0.8); Monocytes % 8.5 % (1.7-12.7); Neutrophils % 69.3 % (38.7-73.9); Platelet Count 250 T/CUMM (130-400); Red Blood Count 3.78 MC/CUMM (3.8-5.5); Red Cell Distribution Width 12.2 % (9.3-17.3); White Blood Count 9.8 T/CUMM (4-12)
[2021-12-27 06:19] LABS: Alanine Aminotransferase 32 U/L (16-61); Albumin 3.4 G/DL (3.4-5.0); Alkaline Phosphatase 54 U/L (45-117); Aspartate Amino Transferase 27 U/L (0-37); Bilirubin,Indirect 0.3 MG/DL (0.0-1.0); Blood Urea Nitrogen 20 MG/DL (7-18); Calcium 9.1 MG/DL (8.5-10.1); Carbon Dioxide 29 MMOL/L (21-32); Chloride 105 MMOL/L (98-107); Estimated Glom Filtration Rate 96 ML/MIN; Glucose 104 MG/DL (74-106); Osmolality,Calculated 277.7 MOS/KG (273-304); Potassium 3.4 MMOL/L (3.5-5.1); Sodium 138 MMOL/L (136-145); Total Protein 6.5 G/DL (6.4-8.2)
[2021-12-27] MEDS ORDERED: oxyCODONE/ACETAMINOPHEN 5-325 MG TABLET PO PRN (07:12)
[2021-12-27 08:47] VITALS: BP 167/88
[2021-12-27] MEDS ORDERED: METOPROLOL TARTRATE 100 MG TABLET PO SCH (09:00)
[2021-12-27] MEDS ORDERED: POTASSIUM CHLORIDE 20 MEQ TABLET PO ONE (09:21)
[2021-12-27] MEDS: PANTOPRAZOLE 40 MG TABLET PO SCH (09:59)
[2021-12-27] MEDS: cloNIDine 0.1 MG TABLET PO SCH (10:00)
[2021-12-27] MEDS: CHOLECALCIFEROL 5,000 UNIT TABLET PO SCH (10:00)
[2021-12-27] MEDS: ASCORBIC ACID 500 MG TABLET PO SCH (10:00)
[2021-12-27] MEDS: ASPIRIN EC 81 MG TABLET PO SCH (10:00)
[2021-12-27] MEDS: FERROUS SULFATE 325 MG TABLET PO SCH (10:01)
[2021-12-27] MEDS: DOCUSATE SODIUM 100 MG CAPSULE PO SCH (10:01)
[2021-12-27] MEDS: POLYETHYLENE GLYCOL POWDER 17 GM PACK PO SCH (10:02)
[2021-12-27] MEDS: CHLORHEXIDINE 0.12% ORAL RINSE 60 ML BOTTLE SWISH/SPIT SCH (10:07)
== END 2021-12-27 12:53 | disposition home health service (06) | DRG 236 ==
LOC: N.TELEN 16:13 → N.CVR 12-22 11:08 → N.ICU 12-23 07:40 → N.TELES 12-24 14:21